=== PATIENT | male | born 1985 | race Two or more races ===

== ENCOUNTER 2024-10-12 13:27 | Emergency (ER) | payer SELFPAY ==
[~2024-10-12] VITALS: Ht 180.3 cm; Wt 81.3 kg
--- NOTE | 2024-10-12 14:02 | ED.PDOC ---
Back pain HPI HPI Comments 38 y.o male presents to the ED for a chief complaint of right calf pain that started yesterday. Patient describes pain as sharp cramping pain that presented while walking and since has been constant, non radiating and non alleviating. Patient denies any erythema, swelling, fever, chills, SOB or chest pain. Patient denies medical history or allergies. Chief Complaint: Lower Extremity Time Seen by MD: 13:57 Primary Care Provider: unknown Reviewed Notes: Nurses Notes, Medications, Allergies Allergies: Coded Allergies: NO KNOWN ALLERGIES (Unverified , 10/12/24) Information Source: Patient Mode of Arrival: Ambulatory Timing: Days (1) Duration: Since onset Severity: Moderate Quality: Cramping Onset: Spontaneous Circumstance: Other History of: None Modifying Factors: Nothing Associated signs and symptoms: Other Past Medical History PAST MEDICAL HISTORY: Denies Surgical History: Denies all surgeries Family History Family History: Family hx of Cancer Social History Smoker: Non-Smoker Alcohol: Denies ETOH Use Drugs: Denies Drug Use Lives In: Home Constitutional: denies: chills, diaphoresis, fatigue, fever, malaise, sweats, weakness, others EENTM: denies: blurred vision, double vision, ear bleeding, ear discharge, ear drainage, ear pain, ear ringing, eye pain, eye redness, hearing loss, mouth pain, mouth swelling, nasal discharge, nose bleeding, nose congestion, nose pain, photophobia, tearing, throat pain, throat swelling, voice changes, others Respiratory: denies: cough, hemoptysis, orthopnea, SOB at rest, shortness of breath, SOB with excertion, stridor, wheezing, others Cardiovascular: denies: chest pain, dizzy spells, diaphoresis, Dyspnea on exertion, edema, irregular heart beat, left arm pain, lightheadedness, palpitations, PND, syncope, others Gastrointestinal: denies: abdomen distended, abdominal pain, blood streaked bowels, constipated, diarrhea, dysphagia, difficulty swallowing, hematemesis, melena, nausea, poor appetite, poor fluid intake, rectal bleeding, rectal pain, vomiting, others Genitourinary: denies: burning, dysuria, flank pain, frequency, hematuria, incontinence, penile discharge, penile sore, pain, testicle pain, testicle swelling, urgency, others Neurological: denies: dizziness, fainting, headache, left sided numbness, left sided weakness, numbness, paresthesia, pre-existing deficit, right sided numbness, right sided weakness, seizure, speech problems, tingling, tremors, weakness, others Musculoskeletal: reports: others (right calf pain ); denies: back pain, gout, joint pain, joint swelling, muscle pain, muscle stiffness, neck pain Integumetry: denies: bruises, change in color, change in hair/nails, dryness, laceration, lesions, lumps, rash, wounds, others Allergic/Immunocompromised: denies: Difficulty Healing, Frequent Infections, Hives, Itching, others Hematologic/Lymphatic: denies: anemia, blood clots, easy bleeding, easy bruising, swollen glands, others Endocrine: denies: excessive hunger, excessive sweating, excessive thirst, excessive urination, flushing, intolerance to cold, intolerance to heat, unexplained weight gain, unexplained weight loss, others Psychiatric: denies: anxiety, bipolar disorder, depression, hopeless, panic disorder, schizophrenia, sleepless, suicidal, others All Other Systems: Reviewed and Negative Physical Exam General Appearance: Mild Distress HEENT: Normal ENT Inspection, Pharynx Normal, TMs Normal Neck: Full Range of Motion, Non-Tender, Normal, Normal Inspection Respiratory: Chest Non-Tender, Lungs Clear, No Accessory Muscle Use, No Respiratory Distress, Normal Breath Sounds Cardiovascular: No Edema, No JVD, No Murmur, No Gallop, Normal Peripheral Pulses, Regular Rate/Rhythm Breast Exam: Deferred Gastrointestinal: No Organomegaly, Non Tender, No Pulsatile Mass, Normal Bowel Sounds, Soft Genitalia: Deferred Pelvic: Deferred Rectal: Deferred Extremities: No calf tenderness, Normal capillary refill, No pedal edema Musculoskeletal : Apperance: Normal Neurologic: Alert, 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 Was a procedure done?: No Back Pain Differential Dx Differential Diagnosis: Fracture, Musculoskeletal Pain, Other (sprain, strain, DVT ) X-Ray, Labs, Meds, VS Vital Signs Date Time Temp Pulse Resp B/P (MAP) Pulse Ox O2 Delivery O2 Flow Rate FiO2 10/12/24 14:59 62 16 97 Room Air 10/12/24 14:59 98.9 62 16 124/64 (84) 97 98.9 10/12/24 13:47 99.4 64 16 125/69 (87) 97 99.4 X-ray of the right tib-fib region is negative for any fracture We recommend that the patient have an MRI ordered by his primary care doctor The patient's diagnosis is right leg strain The patient will return to the emergency department's condition worsens The patient was given a prescription of tramadol Images Reviewed?: Images reviewed and evaluated by me Time of 1ST Reevaluation: 14:00 Reevaluation 1ST: Unchanged Patient Education/Counseling: Diagnosis, Treatment, Prognosis, Need For Follow Up Family Education/Counseling: No Family Present Departure 1 Departure Time of Disposition: 15:17 Impression: Primary Impression: Right leg pain Disposition: 01 HOME / SELF CARE / HOMELESS Condition: Fair Discharged With: Self Critical Care Note Critical Care Time?: No Stability Stability form required: No I personally scribed for KARIN SAM MD ([email or web address]) on 10/12/24 at 14:02. Electronically submitted by Maria Elena Monteiro ([facility]). KARIN SAM MD October 12, 2024 14:02
--- NOTE | 2024-10-12 14:51 | DVH ---
CLINICAL INDICATION: pain TECHNIQUE: 3 radiographic views of the right tibia fibula were obtained. Comparison: None FINDINGS/IMPRESSION: There is no evidence of acute fracture or dislocation. The visualized joint space is well maintained. The alignment is anatomical. There is no radiopaque foreign body.
[2024-10-12 15:43] VITALS: BP 124/71; PULSE 68; RESP 16; TEMP 98; O2SAT 97
== END 2024-10-12 15:46 | disposition home or self-care (01) ==
LOC: ER 13:34
DX: M79.661 Pain in right lower leg (principal)
CPT/HCPCS: 73590